=== PATIENT | male | born 1990 | race Caucasian/White ===

== ENCOUNTER 2017-11-23 09:52 | Emergency (ER) | payer OTHER ==
[~2017-11-23] VITALS: Ht 175.3 cm; Wt 79.2 kg
[2017-11-23] MEDS ORDERED: SODIUM CHLORIDE 0.9% 1000ML 1,000 ML IV STA (10:14)
[2017-11-23 10:19] VITALS: TEMP 37; Ht 175.3 cm; Wt 79.2 kg
[2017-11-23] MEDS ORDERED: LIDO/EPINEPHRINE/SOD BICARB 20 ML VIAL ONE (10:25)
[2017-11-23 10:50] LABS: BASO % 0.2 %; BASO ABS # 0.01 K/uL (0-0.2); EOS % 0.9 %; EOS ABS # 0.05 K/uL (0-0.5); HEMATOCRIT 42.9 % (42-52); HEMOGLOBIN 15.5 g/dL (14.0-18.0); IG# 0.02 K/uL (0.00-0.02); LYMPH % 17.8 %; LYMPH ABS # 1.01 K/uL (1.2-3.4); MEAN CELL VOLUME 85.3 fL (80-100); MEAN CORPUSCULAR HEMOGLOBIN 30.8 pg (25-34); MEAN CORPUSCULAR HGB CONC 36.1 g/dl (32-36); MEAN PLATELET VOLUME 9.7 fL (7.4-10.4); MONO % 6.2 %; MONO ABS # 0.35 K/uL (0.11-0.59); NEUT % 74.5 %; NEUT ABS # 4.25 K/uL (1.4-6.5); PLATELET COUNT 190 K/uL (130-400); RED CELL DISTRIBUTION WIDTH CV 12.4 % (11.5-14.5); RED CELL DISTRIBUTION WIDTH SD 38.2 fL (36.4-46.3); WHITE BLOOD COUNT 5.69 K/uL (4.8-10.8)
--- NOTE | 2017-11-23 10:51 | DIAGNOSTIC IMAGING REPORT ---
CHEST ONE VIEW PORTABLE HISTORY: EVALUATE ALTERED MENTAL STATUS/WEAKNESS COMPARISON: Chest 05/05/2014. FINDINGS: The lungs are clear. Cardiac silhouette is normal in size. No pleural effusions. No pneumothorax. IMPRESSION: No acute process. Electronically signed by: Apollo Mcdonald M.D. 11/23/2017 10:50 AM Dictated Date/Time: 11/23/2017 10:49 AM
[2017-11-23 10:59] LABS: INR 1.1 (0.9-1.1); PTT PATIENT 25.4 SECONDS (21.0-31.0)
[2017-11-23] MEDS ORDERED: ONDANSETRON INJ 2 MG/ML 2 ML VIAL IV STA (11:07)
[2017-11-23] MEDS ORDERED: MoRPHine SULFATE 4 MG/ML 1 ML CARP\\VIAL IV STA (11:07)
[2017-11-23 11:24] LABS: ALBUMIN 3.9 gm/dl (3.4-5.0); ALT/SGPT 49 U/L (12-78); AST/SGOT 29 U/L (15-37); BLOOD UREA NITROGEN 10 mg/dl (7-18); CALCIUM 8.8 mg/dl (8.5-10.1); CARBON DIOXIDE 29 mmol/L (21-32); CREATININE 1.09 mg/dl (0.60-1.40); GLUCOSE 112 mg/dl (70-99); LIPASE 86 U/L (73-393); POTASSIUM 4.4 mmol/L (3.5-5.1); SODIUM 138 mmol/L (136-145)
[2017-11-23 11:33] LABS: ALKALINE PHOSPHATASE 75 U/L (45-117); CKMB 0.9 ng/ml (0.5-3.6); TOTAL PROTEIN 7.6 gm/dl (6.4-8.2)
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
[2017-11-23 12:30] VITALS: BP 118/74; PULSE 80; O2SAT 97
--- NOTE | 2017-11-23 12:44 | EMERGENCY ROOM VISIT NOTE ---
ED Visit Note Emergency Department Procedure Note. I was asked to see Mr. Worley by Dr. Kevin Sanders, emergency medicine, for repair of lacerations. Please see Dr. Sanders's notes and orders for full information on his ED visit. Tetanus Immunization Status: Patient reports up-to-date. Physical Examination: Left Hand. Patient has a total of 3 separate full-thickness lacerations. 2 of the lacerations measuring a total of 2.8 cm were full-thickness and one was located over the dorsal aspect of the fourth MCP joint and the other one was over the dorsal aspect of the fifth MCP joint. His final laceration was located over the lateral aspect of the hyperthenar eminence and measured 0.8 cm and was full-thickness. There was no bony deformity or crepitus throughout the hand. He had full range of motion in flexion and extension of the MCP, PIP and DIP joints of the ring and little fingers. Throughout the hand the skin was warm and pink and capillary refill was brisk. He was able to distinguish light sensations through all dermatomes of the hand. ED Course: Wound Repair: Complexity: Basic Verbal consent was obtained after the risks and benefits were explained. The skin was prepped with betadine and a sterile field set. Wound edges of the wound was anesthetized with total of 4.2 ml buffered 1% lidocaine. The wounds were explored for foreign bodies and none found. Copious irrigation was performed using sterile saline. With direct pressure the bleeding subsided. Debridement was not performed. The wound edges were approximated using 5-0 Ethilon with a total of 7 simple interrupted sutures. Hemostasis and excellent approximation was achieved. Antibacterial ointment and a sterile dressing applied. No complications and the patient tolerated the procedure well.
== END 2017-11-23 12:30 | disposition short-term general hospital (02) ==
LOC: EDBD 09:52 → C.EDB 09:55
DX: T24.032A Burn of unspecified degree of left lower leg, initial encounter (principal); S61.412A Laceration without foreign body of left hand, initial encounter; W25.XXXA Contact with sharp glass, initial encounter; Y26.XXXA Exposure to smoke, fire and flames, undetermined intent, initial encounter; Z77.098 Contact with and (suspected) exposure to other hazardous, chiefly nonmedicinal, chemicals; F22 Delusional disorders; R03.0 Elevated blood-pressure reading, without diagnosis of hypertension; J45.909 Unspecified asthma, uncomplicated; F17.200 Nicotine dependence, unspecified, uncomplicated; Z86.59 Personal history of other mental and behavioral disorders